=== PATIENT | male | born 1970 | race Hispanic/Latino ===

== ENCOUNTER 2022-01-06 19:13 | Emergency (ER) | payer OTHER, MEDICAID, SELFPAY ==
[2022-01-06] VITALS (16 sets, daily range): BP systolic 132–172; BP diastolic 76–100; PULSE 82–102; RESP 10–31; TEMP 36.6; O2SAT 98–100; BMI 31.1
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
--- NOTE | 2022-01-06 19:22 | DI.RAD.S_ITS ---
PROCEDURE: XR CHEST 1V INDICATIONS: trauma TECHNIQUE: One view of the chest was acquired. COMPARISON: None. FINDINGS: Surgical changes and devices: None. Lungs and pleura: Lungs are clear. No pleural effusions or pneumothorax. Mediastinum: Mediastinal contours appear normal. Heart size is normal. Bones and chest wall: No suspicious bony lesions. Overlying soft tissues appear unremarkable. IMPRESSION: No acute cardiopulmonary abnormalities or focal airspace disease. Dictated by: Nikhil Bang M.D. on 01/06/2022 at 19:34 Approved by: Nikhil Bang M.D. on 01/06/2022 at 19:34
--- NOTE | 2022-01-06 19:22 | DI.CT.S_ITS ---
PROCEDURE: CT CERVICAL SPINE WO CON INDICATIONS: Trauma TECHNIQUE: Noncontrast 3 mm thick sections acquired from the skull base to the T4 level. Sagittal and coronal reformats were then constructed. For radiation dose reduction, the following was used: automated exposure control, adjustment of mA and/or kV according to patient size. COMPARISON: None. FINDINGS: Image quality: Excellent. Bones: No acute fractures or dislocations. No acute compression fractures of the vertebral bodies. Craniocervical junction is intact. C1-C2 relationship is preserved. Visualized superior ribs are intact. Moderate multilevel cervical spondylosis seen throughout the imaged spine. Soft tissues: Prevertebral soft tissues are normal in thickness. No paravertebral hematomas. No apical pneumothoraces. IMPRESSION: CT cervical spine without acute fracture or traumatic malalignment. Moderate multilevel cervical spondylosis. Dictated by: Nikhil Bang M.D. on 01/06/2022 at 19:58 Approved by: Nikhil Bang M.D. on 01/06/2022 at 19:59
--- NOTE | 2022-01-06 19:23 | DI.CT.S_ITS ---
PROCEDURE: CT CHEST ABD PEL W CON INDICATIONS: Trauma TECHNIQUE: After the administration of intravenous contrast, 5 mm thick sections acquired from the lung apices to the symphysis. 2.5 mm thick coronal and sagittal reformats were acquired. Additional 7 mm thick coronal maximum intensity projection (MIP) reformats acquired through the lungs. Optional 10-minute delayed imaging may be performed from the kidneys to the bladder. For radiation dose reduction, the following was used: automated exposure control, adjustment of mA and/or kV according to patient size. COMPARISON: None. FINDINGS: Image quality: Excellent. CHEST: Lungs: There is mild pleural thickening more focal involving the right lateral chest at the level of the 4th rib 5th and 6 rib and 7th rib. More linear consolidation noted in the right upper lobe posterior to the 4th rib. Trace right pleural effusion. Bibasilar atelectasis. No pneumothorax. Central and peripheral airways appear patent and normal in caliber. Mediastinum: No mediastinal hematomas. Heart size is normal. No pericardial effusion. Thoracic aorta and pulmonary arteries demonstrate normal size and enhancement. No mediastinal or hilar adenopathy. Esophagus is normal in caliber. No hiatal hernia. Coronary atherosclerotic vascular calcifications are noted. Chest wall: No definite rib fracture overlying focal areas of pleural thickening as described above. No subcutaneous emphysema. No axillary or supraclavicular adenopathy. Thyroid gland is unremarkable. ABDOMEN: Solid organs: Liver is normal in size and enhancement, without lacerations. Gallbladder is unremarkable Biliary system is non-dilated. Pancreas enhances normally, without transection. Spleen is normal in size and enhancement, without lacerations. No adrenal hematomas. Both kidneys enhance normally, without hydronephrosis or lacerations. Bilateral ureters are normal in course and caliber. Peritoneum and bowel: No free fluid or air. Unenhanced bowel loops demonstrate normal wall thickness and caliber. Normal appendix. Scattered colonic diverticulosis without acute diverticulitis. Nodes and vessels: No retroperitoneal or mesenteric adenopathy. Aorta and inferior vena cava are normal in size and enhancement. Scattered atherosclerotic calcifications of the abdominal aorta and iliac vessels without aneurysmal dilatation. The inferior vena cava appears patent. Miscellaneous: No ventral hernias. PELVIS: Genitourinary: There is minimal circumferential urinary bladder wall thickening which may be related to incomplete distention; however, cystitis may have a similiar appearance. Miscellaneous: No inguinal hernias. No pelvic adenopathy. Bones: Pelvic ring and hip joints appear intact. No acute vertebral compression fractures. Multilevel spondylosis of the imaged spine IMPRESSION: 1. Mild focal right pleural thickening posterior to the right 4th, 5th, 6th and 7th ribs without definite overlying rib fractures. More subpleural oblong consolidation posterior to the right 4th rib may represent small pulmonary contusion. Otherwise, no other findings to suggest acute traumatic injury to the chest. No pneumothorax. Trace right pleural effusion. 2. No evidence for acute traumatic injury to the great vessels. 3. No evidence for traumatic injury to the solid or hollow organs of the abdomen and pelvis. 4. Other chronic findings as above. Dictated by: Nikhil Bang M.D. on 01/06/2022 at 20:06 Approved by: Nikhil Bang M.D. on 01/06/2022 at 20:17
--- NOTE | 2022-01-06 19:23 | DI.RAD.S_ITS ---
PROCEDURE: XR TIBIA FIBULA LT 2V INDICATIONS: trauma TECHNIQUE: 2 views of the tibia and fibula were acquired. COMPARISON: None. FINDINGS: Bones: Nondisplaced fracture involving the proximal left fibular head. This is best seen on the lateral view. Remainder of the visualized osseous structures appear intact. Tricompartmental degenerative changes of the left knee. Soft tissues: No suspicious soft tissue calcifications or masses. IMPRESSION: Nondisplaced fibular head fracture of the proximal left fibula. Dictated by: Nikhil Bang M.D. on 01/06/2022 at 20:23 Approved by: Nikhil Bang M.D. on 01/06/2022 at 20:24
--- NOTE | 2022-01-06 19:23 | DI.CT.S_ITS ---
PROCEDURE: CT HEAD/BRAIN WO CON INDICATIONS: Trauma TECHNIQUE: Noncontrast 4.5 mm thick angled axial sections acquired from the foramen magnum to the vertex, with coronal and sagittal reformats. For radiation dose reduction, the following was used: automated exposure control, adjustment of mA and/or kV according to patient size. COMPARISON: None. FINDINGS: Image quality: Excellent. CSF spaces: Basal cisterns are patent. No extra-axial fluid collections. Ventricles are normal in size and shape. Brain: No midline shift. No intracranial masses or hemorrhage. Kunz-white matter interface is normal. Skull and face: Calvarium and visualized facial bones are intact, without suspicious lesions. Sinuses: Visualized sinuses and mastoids are clear. IMPRESSION: CT head without acute intracranial abnormalities or acute calvarial fractures. Dictated by: Nikhil aBng M.D. on 01/06/2022 at 19:57 Approved by: Nikhil Bang M.D. on 01/06/2022 at 19:58
--- NOTE | 2022-01-06 19:34 | DI.RAD.S_ITS ---
PROCEDURE: XR ANKLE LT MIN 3V INDICATIONS: trauma TECHNIQUE: 3 views of the ankle were acquired. COMPARISON: None. FINDINGS: Bones: No fractures or dislocations. Ankle mortise is normally aligned. No suspicious bony lesions. Soft tissues: No tibiotalar joint effusion. Achilles tendon appears normal. IMPRESSION: 1. No fracture or dislocation. Dictated by: Navi Avila M.D. on 01/06/2022 at 20:16 Approved by: Navi Avila M.D. on 01/06/2022 at 20:17
--- NOTE | 2022-01-06 19:34 | DI.RAD.S_ITS ---
PROCEDURE: XR TIBIA FUBULA RT 2V INDICATIONS: trauma TECHNIQUE: 2 views of the tibia and fibula were acquired. COMPARISON: None. FINDINGS: Bones: No fractures or dislocations. No suspicious bony lesions. Soft tissues: No suspicious soft tissue calcifications or masses. There is an enthesophyte at the insertion of the patellar tendon. IMPRESSION: 1. No fracture or dislocation of the tibia or fibula. Dictated by: Navi Avila M.D. on 01/06/2022 at 20:15 Approved by: Navi Avila M.D. on 01/06/2022 at 20:16
--- NOTE | 2022-01-06 19:36 | DI.RAD.S_ITS ---
PROCEDURE: XR FOOT LT MIN 3V INDICATIONS: trauma TECHNIQUE: 3 views of the foot were acquired. COMPARISON: None. FINDINGS: Bones: Possible nondisplaced fracture involving the distal phalanx of the left great toe. Age-indeterminate ossification and linear lucency involving the base of the left great toe proximal phalanx. Background polyarticular degenerative changes of the left foot and ankle. Retrocalcaneal enthesophyte visualized. No suspicious bony lesions. Soft tissues: No tibiotalar joint effusion. Achilles tendon appears normal. IMPRESSION: Possible nondisplaced fracture of the distal phalanx of the left great toe. Age-indeterminate ossification and linear lucency involving the base of the left great toe proximal phalanx. This may also represent a fracture. Recommend clinical correlation. Dictated by: Nikhil Bang M.D. on 01/06/2022 at 20:24 Approved by: Nikhil Bang M.D. on 01/06/2022 at 20:26
[2022-01-06 19:37] LABS: Add Manual Diff / Slide Review NO; Basophils Absolute Auto 100 /uL (0-100); Basophils Percent Auto 0.9 % (0-2); Eosinophils Absolute Auto 600 /uL (0-450); Eosinophils Percent Auto 7.1 % (2-4); Hematocrit 38.8 % (41-53); Hemoglobin 13.1 g/dL (13.5-17.5); Lymphocytes Absolute Auto 1400 /uL (1100-4500); Lymphocytes Percent Auto 16.3 % (25-40); Mean Corpuscular HGB Conc 33.8 % (30-36); Mean Corpuscular Hemoglobin 26.5 PG (26-34); Mean Corpuscular Volume 78.4 fL (80-100); Monocytes Absolute Auto 800 /uL (0-900); Monocytes Percent Auto 8.9 % (3-14); Neutrophils Absolute Auto 5600 /uL (1500-7000); Neutrophils Percent Auto 66.8 % (50-75); Platelet Count 357 X10^3/uL (150-400); Red Blood Cell Count 4.95 X10^6/uL (4.5-5.9); Red Cell Distribution Width 14.4 % (11.6-14.8); White Blood Cell Count 8.5 X10^3/uL (4.5-11.0)
[2022-01-06] MEDS: HYDROMORPHONE 0.5 MG INJ IV (19:41)
[2022-01-06] MEDS: SODIUM CHLORIDE 0.9% 1,000 ML 150 ML IV (19:41)
[2022-01-06 19:44] LABS: INR 1.1 (0.9-1.3); Prothrombin Time 11.8 SECONDS (10.1-12.7)
[2022-01-06 19:46] LABS: PTT Partial Thromboplastin Tim 39 SECONDS (26.4-36.2)
[2022-01-06 19:50] LABS: Alanine Aminotransferase 19 IU/L (<50); Albumin 4.1 g/dL (3.5-5.0); Albumin Globulin Ratio 1.3 (1.0-2.8); Alkaline Phosphatase 72 U/L (38-126); Aspartate Aminotransferase 31 IU/L (17-59); BUN Creatinine Ratio 16.2 (6-22); Bilirubin Total 0.4 mg/dL (0.2-1.3); Blood Urea Nitrogen 17 mg/dL (9-20); Calcium 8.5 mg/dL (8.4-10.2); Carbon Dioxide 30 mmol/L (22-32); Chloride 104 mmol/L (98-107); Estimated Glomerular Filt Rate > 60 mL/min (>60); Ethanol (ETOH) < 10 mg/dL; Globulin 3.2 g/dL (1.7-4.1); Glucose 100 mg/dL (70-100); HEMOLYSIS < 15 (0-50); Lipase 70 U/L (23-300); Potassium 4.1 mmol/L (3.4-5.1); Sodium 139 mmol/L (137-145); Total Protein 7.3 g/dL (6.3-8.2)
--- NOTE | 2022-01-06 20:06 | PC.NURSE ---
Pt reports pain at tolerable level at this time. Pt denies nausea, remains AxOx4, VSS on RA.
--- NOTE | 2022-01-06 20:08 | PC.NURSE ---
c-spine cleared, c-collar removed at this time per Dr. Lees verbal order.
--- NOTE | 2022-01-06 20:58 | PC.NURSE ---
Pt ambulated with crutches and SBA to restroom. Pt tolerated this well, reporting pain in his left toe primarily and some soreness in his mid-back. Pt tolerate PO hydration. Left foot was redressed prior to ambulating, now has small amount of bloody drainage noted on gauze wrap. Will perform another dressing change soon. Pt sister on her way.
[2022-01-06] MEDS: KETOROLAC 30 MG/ML VIAL 15 MG IV (21:02)
[2022-01-06] MEDS: cephALEXin 250 MG CAPSULE 500 MG PO (21:42)
[2022-01-06] MEDS: OXYCODONE/APAP 5/325 PREPACK 1 BOTTLE MISC (21:42)
[2022-01-06] MEDS: BACITRACIN OINT 0.9 GM PCKT 10 APPLIC TOP (21:42)
== END 2022-01-06 22:05 | disposition home or self-care (01) ==
PROVIDERS: Emergency Provider Emergency Medicine
DX: S82.832A Other fracture of upper and lower end of left fibula, initial encounter for closed fracture (principal); S92.422A Displaced fracture of distal phalanx of left great toe, initial encounter for closed fracture; V33.5XXA Driver of three-wheeled motor vehicle injured in collision with car, pick-up truck or van in traffic accident, initial encounter; S20.212A Contusion of left front wall of thorax, initial encounter; M54.2 Cervicalgia
CPT/HCPCS: 36415; 70450; 71045; 71260; 72125; 72170; 73590; 73610; 73630; 74177; 80053; 80320; 81003; 83690; 85025; 85610; 85730; 86850; 86900; 86901; 93005; 93010; 96374; 96375; 99285; 99291; G0390; J1170; J1885